=== PATIENT | male | born 1955 | race Caucasian/White ===

== ENCOUNTER 2024-12-31 05:47 | Emergency (ER) | payer OTHER ==
[~2024-12-31] VITALS: Ht 193 cm; Wt 81.6 kg
[2024-12-31 06:34] LABS: BILIRUBIN Negative (Negative); BLOOD 1+ (Negative); CLARITY Clear (Clear); COLOR Yellow (Yellow); GLUCOSE Negative (Negative); KETONE Negative (Negative); LEUKO ESTERASE Negative (Negative); NITRITE Negative (Negative); PH 5.5 (4.5-8.0); SPECIFIC GRAVITY <= 1.005 (1.001-1.030); UROBILINOGEN 0.2 E.U./dl (0.0-1.0)
[2024-12-31 06:52] LABS: BACTERIA TRACE
== END 2024-12-31 07:15 | disposition home or self-care (01) ==
LOC: ED 05:47
PROVIDERS: Internal Medicine
DX: R33.9 Retention of urine, unspecified (principal)

== ENCOUNTER 2024-12-31 13:21 | Emergency (ER) | payer OTHER ==
[~2024-12-31] VITALS: Ht 193 cm; Wt 81.6 kg
== END 2024-12-31 14:43 | disposition home or self-care (01) ==
LOC: ED 13:21
DX: T83.038A Leakage of other urinary catheter, initial encounter (principal); Y84.8 Other medical procedures as the cause of abnormal reaction of the patient, or of later complication, without mention of misadventure at the time of the procedure; Y92.89 Other specified places as the place of occurrence of the external cause